=== PATIENT | female | born 1960 | race Caucasian/White ===

== ENCOUNTER 2021-11-25 17:54 | Emergency (ER) | payer BC ==
[2021-11-25 18:02] VITALS: BP 119/41; PULSE 56; TEMP 98.2; BMI 28.3
== END 2021-11-25 20:10 | disposition home or self-care (01) ==
LOC: JERFT 17:54
DX: Z20.822 Contact with and (suspected) exposure to COVID-19 (principal)
CPT/HCPCS: 99282-25